=== PATIENT | male | born 2000 | race African-American/Black ===

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

== ENCOUNTER 2018-01-16 09:47 | Emergency (ER) | payer OTHER ==
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
--- NOTE | 2018-01-16 11:09 | CR ---
EXAMINATION: Left ankle HISTORY: Pain COMPARISON: 12/30/2017 TECHNIQUE: 3 views FINDINGS/IMPRESSION: There is no acute osseous abnormality, dislocation, or fracture. Bone mineraliza tion, ankle mortise, talar dome appear intact. Mild soft tissue swelling overlying the lateral malleo issac.
--- NOTE | 2018-01-16 11:15 | CR ---
EXAMINATION: Lumbar spine HISTORY: Pain COMPARISON: None TECHNIQUE: AP and lateral views FINDINGS: The lumbar spinal alignment is normal. Vertebral body heights and disc spaces appear well-m aintained. Mild concave appearance noted within the endplates. The SI joints are symmetric. Bone mine ralization is normal. IMPRESSION: No acute osseous abnormality identified.
== END 2018-01-16 11:50 | disposition home or self-care (01) ==
LOC: MW.ED 09:47
DX: M54.5 Low back pain (principal); M25.572 Pain in left ankle and joints of left foot; V49.40XA Driver injured in collision with unspecified motor vehicles in traffic accident, initial encounter
CPT/HCPCS: 72100; 72100-26; 73610-26-LT; 73610-LT; 99283

== ENCOUNTER 2018-07-27 08:28 | Emergency (ER) | payer SELFPAY ==
--- NOTE | 2018-07-27 08:44 | EDM.PDOC ---
ED HPI GENERAL MEDICAL PROBLEM - General Chief Complaint: ENT Problem Stated Complaint: SOMETHING IN HIS THROAT Time Seen by Provider: 07/27/18 08:31 - History of Present Illness INITIAL COMMENTS - FREE TEXT/NARRATIVE: HISTORY AND PHYSICAL: History of present illness: The patient is a 17-year-old male who presents with 2 day history of sore throat. He is unsure if he's had fever or chills. He denies any headache, nasal congestion, ear pain, cough, nausea, or vomiting. He denies any sick contacts or significant past medical history. Eating, drinking and swallowing makes it worse. Nothing makes it better. The patient hasn't tried any ceuh-kyp-tumirhm medications for pain relief. [] Review of systems: As per history of present illness and below otherwise all systems reviewed and negative. Past medical history: As per history of present illness and as reviewed below otherwise noncontributory. Surgical history: As per history of present illness and as reviewed below otherwise noncontributory. Social history: No reported history of drug or alcohol abuse. Family history: As per history of present illness and as reviewed below otherwise noncontributory. Physical exam: HEENT: Atraumatic, normocephalic, pupils reactive, negative for conjunctival pallor or scleral icterus, mucous membranes moist,orophyarnx clear without erythema or exudates, TM clear without erythema or bulging, neck supple without lymphadenopathy, nontender, trachea midline. Lungs: Clear to auscultation, breath sounds equal bilaterally, chest nontender. Heart: S1S2, regular, negative for clicks, rubs, or JVD. Abdomen: Soft, nondistended, nontender. Negative for masses or hepatosplenomegaly. Negative for costovertebral tenderness. Pelvis: Stable nontender. Genitourinary: Deferred. Rectal: Deferred. Extremities: Atraumatic, negative for cords or calf pain. Neurovascular unremarkable. Neuro: Awake, alert, oriented. Cranial nerves II through XII unremarkable. Cerebellum unremarkable. Motor and sensory unremarkable throughout. Exam nonfocal. Diagnostics: [Rapid Strep] Therapeutics: [none] Impression: [viral illness] Plan: [Discharge home with supportive care. Culture pending.] Definitive disposition and diagnosis as appropriate pending reevaluation and review of above. Throat Pain Score (Numeric/FACES): 9 - Related Data Allergies Allergy/AdvReac Type Severity Reaction Status Date / Time No Known Allergies Allergy Verified 07/27/18 08:43 Home Meds: Home Meds . [No Known Home Meds] 12/30/17 [History] Past Medical History - Past Health History Medical/Surgical History: Denies Medical/Surgical History - Infectious Disease History Infectious Disease History: Reports: TB Social & Family History - Family History Family Medical History: Noncontributory ED ROS GENERAL - Review of Systems Review Of Systems: See Below (see dictation) ED EXAM, GENERAL - Physical Exam Exam: See Below (see dictation) Course - Vital Signs Last Recorded V/S: Last Vital Signs Temp 98.8 F 07/27/18 08:34 Pulse 94 07/27/18 08:34 Resp 16 07/27/18 08:34 BP 120/74 07/27/18 08:34 Pulse Ox 99 07/27/18 08:34 - Orders/Labs/Meds Orders: Active Orders 24 hr Category Date Time Status CULTURE STREP A CONFIRMATION [RM] Stat Lab 07/27/18 08:50 Results STREP SCRN A RAPID W CULT CONF [RM] Stat Lab 07/27/18 08:50 Results Departure - Departure Time of Disposition: 09:08 Disposition: Home, Self-Care 01 Condition: Good Clinical Impression: Viral pharyngitis - Discharge Information *PRESCRIPTION DRUG MONITORING PROGRAM REVIEWED*: No *COPY OF PRESCRIPTION DRUG MONITORING REPORT IN PATIENT JOSÉ MIGUEL: No Instructions: Sore Throat, [id number], Viral Illness, Adult Referrals: PCP,None [Primary Care Provider] - Forms: ED Department Discharge Additional Instructions: My general discharge The following information is given to patients seen in the emergency department who are being discharged to home. This information is to outline your options for follow-up care. We provide all patients seen in our emergency department with a follow-up referral. The need for follow-up, as well as the timing and circumstances, are variable depending upon the specifics of your emergency department visit. If you don't have a primary care physician on staff, we will provide you with a referral. We always advise you to contact your personal physician following an emergency department visit to inform them of the circumstance of the visit and for follow-up with them and/or the need for any referrals to a consulting specialist. The emergency department will also refer you to a specialist when appropriate. This referral assures that you have the opportunity for follow-up care with a specialist. All of these measure are taken in an effort to provide you with optimal care, which includes your follow-up. Under all circumstances we always encourage you to contact your private physician who remains a resource for coordinating your care. When calling for follow-up care, please make the office aware that this follow-up is from your recent emergency room visit. If for any reason you are refused follow-up, please contact the [facility] Emergency Department at and asked to speak to the emergency department charge nurse. My Primary Care [facility] [address] [place] [id number] Your rapid strep test was negative. A culture is pending. You will be contacted if the culture comes back positive. You may use Tylenol or ibuprofen for pain. Please follow up with your PCP. - My Orders Last 24 Hours: My Active Orders 07/27/18 08:50 CULTURE STREP A CONFIRMATION [RM] Stat STREP SCRN A RAPID W CULT CONF [] Stat - Assessment/Plan Last 24 Hours: My Active Orders 07/27/18 08:50 CULTURE STREP A CONFIRMATION [RM] Stat STREP SCRN A RAPID W CULT CONF [] Stat
== END 2018-07-27 09:18 | disposition home or self-care (01) ==
LOC: MW.ED 08:28
DX: J02.9 Acute pharyngitis, unspecified (principal)
CPT/HCPCS: 87081; 87880-QW; 99282; 99283

== ENCOUNTER 2018-11-08 10:38 | Emergency (ER) | payer SELFPAY ==
--- NOTE | 2018-11-08 11:01 | EDM.PDOC ---
ED HPI GENERAL MEDICAL PROBLEM - General Chief Complaint: ENT Problem Stated Complaint: CANNOT SWALLOW Time Seen by Provider: 11/08/18 10:46 Source of Information: Reports: Patient History Limitations: Reports: No Limitations - History of Present Illness INITIAL COMMENTS - FREE TEXT/NARRATIVE: HISTORY AND PHYSICAL: History of present illness: Patient is a 18-year-old male who presents to the emergency room with complaints of a sore throat and pain with swallowing 2 days. He states he has had generalized body aches and subjective fever. He denies any cough, chest pain , shortness of breath. Denies any abdominal pain, nausea, vomiting, diarrhea or constipation. He has been able to eat although this does cause pain. He has been drinking plenty of fluids. Denies any recent antibiotic use or travel. Review of systems: As per history of present illness and below otherwise all systems reviewed and negative. Past medical history: As per history of present illness and as reviewed below otherwise noncontributory. Surgical history: As per history of present illness and as reviewed below otherwise noncontributory. Social history: See social history for further information Family history: As per history of present illness and as reviewed below otherwise noncontributory. Physical exam: General: Well-developed and well-nourished 18-year-old -[place] male. Alert and oriented. Nontoxic appearing and in no acute distress. HEENT: Atraumatic, normocephalic, pupils equal and reactive bilaterally, negative for conjunctival pallor or scleral icterus, mucous membranes moist, TMs normal bilaterally, mild erythema to the posterior oropharynx without exudate, airway patent, neck supple, nontender, trachea midline. No drooling or trismus noted. No meningeal signs. No hot potato voice noted. Lungs: Clear to auscultation, breath sounds equal bilaterally, chest nontender. Heart: S1S2, regular rate and rhythm without overt murmur Abdomen: Soft, nondistended, nontender. Negative for masses or hepatosplenomegaly. Negative for costovertebral tenderness. Pelvis: Stable nontender. Genitourinary: Deferred. Rectal: Deferred. Skin: Intact, warm, dry. No lesions or rashes noted. Extremities: Atraumatic, negative for cords or calf pain. Neurovascular unremarkable. Neuro: Awake, alert, oriented. Cranial nerves II through XII unremarkable. Cerebellum unremarkable. Motor and sensory unremarkable throughout. Exam nonfocal. Diagnostics: Strep, influenza Therapeutics: None Prescription: Pen VK Phenergan with codeine elixir, #4 ounces Impression: Strep throat Plan: 1. Please take your medication as directed. Please get a new toothbrush in the next 24 hours after starting antibiotics to prevent re-infection 2. Tylenol and/or ibuprofen as needed for pain management. Phenergan with codeine for moderate to severe pain. This medication may cause drowsiness so do not take it will driving her needing to be functioning outside of the house. 3. Please follow-up with your primary care provider in the next 1-2 days. Return to the ED as needed and as discussed. Definitive disposition and diagnosis as appropriate pending reevaluation and review of above. sore throat Pain Score (Numeric/FACES): 8 - Related Data Allergies Allergy/AdvReac Type Severity Reaction Status Date / Time No Known Allergies Allergy Verified 11/08/18 10:51 Home Meds: Home Meds . [No Known Home Meds] 12/30/17 [History] Past Medical History - Past Health History Medical/Surgical History: Denies Medical/Surgical History HEENT History: Reports: None Cardiovascular History: Reports: None Respiratory History: Reports: None Gastrointestinal History: Reports: None Genitourinary History: Reports: None Musculoskeletal History: Reports: None Neurological History: Reports: None Psychiatric History: Reports: None Endocrine/Metabolic History: Reports: None Hematologic History: Reports: None Immunologic History: Reports: None Oncologic (Cancer) History: Reports: None Dermatologic History: Reports: None - Infectious Disease History Infectious Disease History: Reports: Chicken Pox - Past Surgical History Head Surgeries/Procedures: Reports: None Social & Family History - Family History Family Medical History: Noncontributory - Tobacco Use Smoking Status *Q: Never Smoker - Caffeine Use Caffeine Use: Reports: None - Recreational Drug Use Recreational Drug Use: No ED ROS ENT - Review of Systems Review Of Systems: ROS reveals no pertinent complaints other than HPI. ED EXAM, ENT - Physical Exam Exam: See Below (See dictation) Course - Vital Signs Last Recorded V/S: Last Vital Signs Temp 98.0 F 11/08/18 10:51 Pulse 87 11/08/18 10:51 Resp 16 11/08/18 10:51 BP 111/61 01/17/19 10:51 Pulse Ox 97 11/08/18 10:51 - Orders/Labs/Meds Orders: Active Orders 24 hr Category Date Time Status CULTURE STREP A CONFIRMATION [RM] Stat Lab 11/08/18 11:45 Results INFLUENZA A+B AG SCREEN [] Stat Lab 11/08/18 11:45 Received STREP SCRN A RAPID W CULT CONF [RM] Stat Lab 11/08/18 11:45 Results Departure - Departure Time of Disposition: 12:22 Disposition: Home, Self-Care 01 Clinical Impression: Strep throat - Discharge Information Instructions: Strep Throat, [id number]-Hmhy Referrals: PCP,None [Primary Care Provider] - Forms: ED Department Discharge Additional Instructions: The following information is given to patients seen in the emergency department who are being discharged to home. This information is to outline your options for follow-up care. We provide all patients seen in our emergency department with a follow-up referral. The need for follow-up, as well as the timing and circumstances, are variable depending upon the specifics of your emergency department visit. If you don't have a primary care physician on staff, we will provide you with a referral. We always advise you to contact your personal physician following an emergency department visit to inform them of the circumstance of the visit and for follow-up with them and/or the need for any referrals to a consulting specialist. The emergency department will also refer you to a specialist when appropriate. This referral assures that you have the opportunity for follow-up care with a specialist. All of these measure are taken in an effort to provide you with optimal care, which includes your follow-up. Under all circumstances we always encourage you to contact your private physician who remains a resource for coordinating your care. When calling for follow-up care, please make the office aware that this follow-up is from your recent emergency room visit. If for any reason you are refused follow-up, please contact the [facility] Emergency Department at and asked to speak to the emergency department charge nurse. [facility] [address] [place] [id number] [address] 1. Please take your medication as directed. Please get a new toothbrush in the next 24 hours after starting antibiotics to prevent re-infection 2. Tylenol and/or ibuprofen as needed for pain management. Phenergan with codeine for moderate to severe pain. This medication may cause drowsiness so do not take it will driving her needing to be functioning outside of the house. 3. Please follow-up with your primary care provider in the next 1-2 days. Return to the ED as needed and as discussed. - My Orders Last 24 Hours: My Active Orders 11/08/18 11:45 CULTURE STREP A CONFIRMATION [RM] Stat INFLUENZA A+B AG SCREEN [] Stat STREP SCRN A RAPID W CULT CONF [RM] Stat - Assessment/Plan Last 24 Hours: My Active Orders 11/08/18 11:45 CULTURE STREP A CONFIRMATION [RM] Stat INFLUENZA A+B AG SCREEN [] Stat STREP SCRN A RAPID W CULT CONF [] Stat
== END 2018-11-08 12:39 | disposition home or self-care (01) ==
LOC: MW.ED 10:38
DX: J02.9 Acute pharyngitis, unspecified (principal)
CPT/HCPCS: 87081; 87804; 87880-QW; 99283

== ENCOUNTER 2019-06-16 11:17 | Emergency (ER) | payer SELFPAY ==
--- NOTE | 2019-06-16 11:29 | EDM.PDOC ---
ED HPI GENERAL MEDICAL PROBLEM - General Chief Complaint: Bite:Animal, Insect Stated Complaint: HAND INJURY Time Seen by Provider: 06/16/19 11:20 Source of Information: Reports: Patient History Limitations: Reports: No Limitations - History of Present Illness INITIAL COMMENTS - FREE TEXT/NARRATIVE: HISTORY AND PHYSICAL: History of present illness: Patient is a 18-year-old -[place] male presents to the ED today with concern of a bee sting to his left hand middle finger that occurred yesterday. Patient states he has not taken anything for his symptoms and his finger is swollen and has been immediately after the bite. Patient states he's been stung by a bee before and does not have any allergic reaction that he is aware of. Patient states he is able to use the hand but does have some pain with movement of the finger. Patient states he did see the bee itself land directly on his finger and sting him. Patient denies any feeling of tightness in his throat or tingling. Patient denies any direct trauma or any other symptoms or concerns at this time. Patient denies any health history. Patient denies fever, chills, chest pain, shortness of breath, or cough. Denies headache, neck stiff ness, change in vision, syncope, or near syncope. Denies nausea, vomiting, abdominal pain, diarrhea, constipation, or dysuria. Has not noted any blood in urine or stool. Patient has been eating and drinking appropriately. Review of systems: As per history of present illness and below otherwise all systems reviewed and negative. Past medical history: As per history of present illness and as reviewed below otherwise noncontributory. Surgical history: As per history of present illness and as reviewed below otherwise noncontributory. Social history: See social history for further information Family history: As per history of present illness and as reviewed below otherwise noncontributory. Physical exam: General: Patient is alert, oriented, and in no acute distress. Patient sitting comfortably on exam table. HEENT: Atraumatic, normocephalic, pupils equal and reactive bilaterally, negative for conjunctival pallor or scleral icterus, mucous membranes moist, TMs normal bilaterally, throat clear, neck supple, nontender, trachea midline. No drooling or trismus noted. No meningeal signs. No hot potato voice noted. Lungs: Clear to auscultation, breath sounds equal bilaterally, chest nontender. Heart: S1S2, regular rate and rhythm without overt murmur Abdomen: Soft, nondistended, nontender. Negative for masses or hepatosplenomegaly. Negative for costovertebral tenderness. Pelvis: Stable nontender. Genitourinary: Deferred. Rectal: Deferred. Skin: Intact, warm, dry. No lesions or rashes noted. Extremities: Negative for cords or calf pain. Neurovascular unremarkable. There is a pinpoint bite krista on patient's medial third digit of left hand with surrounding edema of the finger, not warm to the touch. The area of edema is isolated to the surrounding pinpoint bite/sting krista. This does not travel into the hand. Patient has full range of motion of all digits on the left hand as well as wrist. Radial pulses grossly intact with capillary refill less than 2 seconds of the left upper extremity. Neuro: Awake, alert, oriented. Cranial nerves II through XII unremarkable. Cerebellum unremarkable. Motor and sensory unremarkable throughout. Exam nonfocal. Notes: Discussed the importance for follow-up with his primary care provider. Voices understanding and is agreeable to plan of care. Denies any further questions or concerns at this time. Diagnostics: None Therapeutics: tdap Prescription: Medrol dose pack Impression: Bee sting, third digit of left hand Plan: 1. While symptomatic continue to routinely take Benadryl. Take medication as prescribed. 2. You can alternate ibuprofen and Tylenol as directed for pain and discomfort. 3. Follow up with your Primary care doctor as discussed. Return to the ED as needed and as discussed. Definitive disposition and diagnosis as appropriate pending reevaluation and review of above. Left Finger-Middle Pain Score (Numeric/FACES): 8 - Related Data Allergies Allergy/AdvReac Type Severity Reaction Status Date / Time No Known Allergies Allergy Verified 06/16/19 11:25 Home Meds: Home Meds . [No Known Home Meds] 12/30/17 [History] Past Medical History - Past Health History Medical/Surgical History: Denies Medical/Surgical History HEENT History: Reports: None Cardiovascular History: Reports: None Respiratory History: Reports: None Gastrointestinal History: Reports: None Genitourinary History: Reports: None Musculoskeletal History: Reports: None Neurological History: Reports: None Psychiatric History: Reports: None Endocrine/Metabolic History: Reports: None Hematologic History: Reports: None Immunologic History: Reports: None Oncologic (Cancer) History: Reports: None Dermatologic History: Reports: None - Infectious Disease History Infectious Disease History: Reports: Chicken Pox - Past Surgical History Head Surgeries/Procedures: Reports: None Social & Family History - Family History Family Medical History: Noncontributory - Caffeine Use Caffeine Use: Reports: None ED ROS GENERAL - Review of Systems Review Of Systems: ROS reveals no pertinent complaints other than HPI. ED EXAM, ANIMAL BITE - Physical Exam Exam: See Below (See dictation) Course - Vital Signs Last Recorded V/S: Last Vital Signs Temp 36.3 C 06/16/19 11:26 Pulse 71 06/16/19 11:26 Resp 16 06/16/19 11:26 BP 107/74 06/16/19 11:26 Pulse Ox 95 06/16/19 11:26 Departure - Departure Time of Disposition: : Disposition: Home, Self-Care 01 Clinical Impression: Bee sting Qualifiers: Encounter type: initial encounter Injury intent: accidental or unintentional Qualified Code(s): T63.441A - Toxic effect of venom of bees, accidental ( unintentional), initial encounter - Discharge Information Instructions: Bee, Wasp, or Hornet Sting, Adult Referrals: PCP,Unknown [Primary Care Provider] - Forms: ED Department Discharge Additional Instructions: The following information is given to patients seen in the emergency department who are being discharged to home. This information is to outline your options for follow-up care. We provide all patients seen in our emergency department with a follow-up referral. The need for follow-up, as well as the timing and circumstances, are variable depending upon the specifics of your emergency department visit. If you don't have a primary care physician on staff, we will provide you with a referral. We always advise you to contact your personal physician following an emergency department visit to inform them of the circumstance of the visit and for follow-up with them and/or the need for any referrals to a consulting specialist. The emergency department will also refer you to a specialist when appropriate. This referral assures that you have the opportunity for follow-up care with a specialist. All of these measure are taken in an effort to provide you with optimal care, which includes your follow-up. Under all circumstances we always encourage you to contact your private physician who remains a resource for coordinating your care. When calling for follow-up care, please make the office aware that this follow-up is from your recent emergency room visit. If for any reason you are refused follow-up, please contact the [facility] Emergency Department at and asked to speak to the emergency department charge nurse. [facility] [address] [place] [id number] [address] 1. While symptomatic continue to routinely take Benadryl. Take medication as prescribed. 2. You can alternate ibuprofen and Tylenol as directed for pain and discomfort. 3. Follow up with your Primary care doctor as discussed. Return to the ED as needed and as discussed.
== END 2019-06-16 11:40 | disposition home or self-care (01) ==
LOC: MW.ED 11:17
DX: T63.441A Toxic effect of venom of bees, accidental (unintentional), initial encounter (principal)
CPT/HCPCS: 99282

== ENCOUNTER 2019-07-12 18:23 | Emergency (ER) | payer SELFPAY ==
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
== END 2019-07-12 18:58 ==
LOC: MW.ED 18:23
DX: Z04.1 Encounter for examination and observation following transport accident (principal)
CPT/HCPCS: 82962; 99283

== ENCOUNTER 2019-07-13 14:47 | Emergency (ER) | payer OTHER | END 2019-07-13 15:12 | disposition left against medical advice (07) | LOC: MW.ED 14:47 | DX: Z53.21 Procedure and treatment not carried out due to patient leaving prior to being seen by health care provider (principal) ==

== ENCOUNTER 2020-08-26 20:24 | Emergency (ER) | payer SELFPAY ==
[2020-08-26] MEDS ORDERED: Lidocaine 1% PF 2 ML SDV INJECT ONE (20:25)
--- NOTE | 2020-08-26 20:27 | EDM.PDOC ---
ED HPI GENERAL MEDICAL PROBLEM - General Chief Complaint: Laceration Stated Complaint: LT LEG LACERATION Time Seen by Provider: 08/26/20 20:25 Source of Information: Reports: Patient History Limitations: Reports: No Limitations - History of Present Illness INITIAL COMMENTS - FREE TEXT/NARRATIVE: HISTORY AND PHYSICAL: History of present illness: Patient is a 20-year-old male who presents to the emergency room with complaints of a laceration to the solar surface of the left great toe. He states he was cooking when he dropped a bottle and stepped on the glass. He believes his tetanus is up-to-date. Denies any other bodily injury. He offers no systemic complaints. Review of systems: As per history of present illness and below otherwise all systems reviewed and negative. Past medical history: As per history of present illness and as reviewed below otherwise noncontributory. Surgical history: As per history of present illness and as reviewed below otherwise nonc ontributory. Social history: See social history for further information Family history: As per history of present illness and as reviewed below otherwise noncontributory. Physical exam: General: Well developed and well nourished 20-year-old -[place] male. Alert and orientated x 3. Nontoxic in appearance and in no acute distress. Vital signs are stable and have been reviewed by me. Nursing notes were reviewed. HEENT: Atraumatic, normocephalic, pupils equal and reactive bilaterally, negative for conjunctival pallor or scleral icterus, mucous membranes moist, TMs normal bilaterally, throat clear, neck supple, nontender, trachea midline. No drooling or trismus noted. No meningeal signs. No hot potato voice noted. Skin: 2.5 cm laceration to the bottom of the left great toe. Otherwise remaining skin is intact, warm, dry. No lesions or rashes noted. Hematologic: No petechiae or purpra. Mucosa appropriate color and normal nail bed color and refill. Extremities: See skin for details, moves all extremities per self without difficulty or deficits, negative for cords or calf pain. Neurovascular unremarkable. Neuro: Awake, alert, oriented. Cranial nerves II through XII unremarkable. Cerebellum unremarkable. Motor and sensory unremarkable throughout. Exam nonfocal. Psychiatric: Mood and affect are appropriate. Normal thought process. Answering questions appropriately. Notes: 1% lidocaine was used to anesthetize the area. Chlorhexidine and wound wash was used to cleanse the area. Usual and customary procedures were followed for suture placement. #6 interrupted sutures were placed. Patient tolerated well. Bacitracin nonstick dressing was applied. Although he believes his tetanus is up-to-date he refuses a Tdap stating he does not want any further shots. The patient is stable for discharge, counseling was provided and we discussed in great detail signs and symptoms that would prompt them to return to the Emergency Department. Medication, follow up and supportive care measures were reviewed and discussed. Voices understanding and is agreeable to plan of care. Denies any further questions or concerns at this time. Diagnostics: None Therapeutics: 1% lidocaine, bacitracin Prescription: None Impression: Laceration Plan: 1. Keep the area clean and dry. Continue to monitor for signs of infection. Sutures to be removed in 7-10 days. 2. Tylenol and/or ibuprofen as needed for pain management. 3. Please follow-up with your primary care provider in the next 1-2 days. Return to the ED as needed and as discussed. Definitive disposition and diagnosis as appropriate pending reevaluation and review of above. L foot Pain Score (Numeric/FACES): 8 - Related Data Allergies Allergy/AdvReac Type Severity Reaction Status Date / Time No Known Allergies Allergy Verified 08/26/20 20:32 Home Meds: Home Meds . [No Known Home Meds] 12/30/17 [History] Past Medical History - Past Health History Medical/Surgical History: Denies Medical/Surgical History HEENT History: Reports: None Cardiovascular History: Reports: None Respiratory History: Reports: None Gastrointestinal History: Reports: None Genitourinary History: Reports: None Musculoskeletal History: Reports: None Neurological History: Reports: None Psychiatric History: Reports: None Endocrine/Metabolic History: Reports: None Hematologic History: Reports: None Immunologic History: Reports: None Oncologic (Cancer) History: Reports: None Dermatologic History: Reports: None - Infectious Disease History Infectious Disease History: Reports: Chicken Pox - Past Surgical History Head Surgeries/Procedures: Reports: None HEENT Surgical History: Reports: None Cardiovascular Surgical History: Reports: None Respiratory Surgical History: Reports: None GI Surgical History: Reports: None Male Surgical History: Reports: None Endocrine Surgical History: Reports: None Neurological Surgical History: Reports: None Musculoskeletal Surgical History: Reports: None Oncologic Surgical History: Reports: None Dermatological Surgical History: Reports: None Social & Family History - Family History Family Medical History: Noncontributory - Caffeine Use Caffeine Use: Reports: None ED ROS GENERAL - Review of Systems Review Of Systems: Comprehensive ROS is negative, except as noted in HPI. ED EXAM, SKIN/RASH Exam: See Below (See dictation) ED SKIN PROCEDURES - Laceration/Wound Repair Left great toe Appearance: Subcutaneous, Linear, Clean Distal NVT: Neuro & Vascular Intact, No Tendon Injury Local Anesthesia - Lidocaine (Xylocaine): 1% Plain Local Anesthetic Volume: 3cc Skin Prep: Chlorhexidine (Hibiciens), Saline, Sterile Drape Saline Irrigation (cc's): 500 Exploration/Debridement/Repair: Wound Explored, In a Bloodless Field, Explored to Base, No Foreign Material Found Closed with: Sutures Lac/Wound length In cm: 2.5 Suture Size: 4-0 # of Sutures: 6 Suture Type: Nylon, Interrupted, Simple Drain Placement: No Sterile Dressing Applied: Provider Tetanus Status Addressed: Yes Complications: No Course - Vital Signs Last Recorded V/S: Last Vital Signs Temp 98.5 F 08/26/20 20:32 Pulse 57 L 08/26/20 20:32 Resp 18 08/26/20 20:32 BP 100/63 08/26/20 20:32 Pulse Ox 99 08/26/20 20:32 - Orders/Labs/Meds Meds: Medications Discontinued Medications Generic Name Dose Route Start Last Admin Trade Name Reese PRN Reason Stop Dose Admin Bacitracin 1 dose 08/26/20 20:53 08/26/20 20:56 Bacitracin Oint 1 Gm TOP 08/26/20 20:54 1 dose ONETIME ONE Administration Lidocaine HCl 4 ml 08/26/20 20:25 08/26/20 20:57 Xylocaine-Mpf 1% INJECT 08/26/20 20:26 4 ml ONETIME ONE Administration Departure - Departure Time of Disposition: 21:09 Disposition: Home, Self-Care 01 Clinical Impression: Laceration - Discharge Information Instructions: Laceration Care, Adult, [id number] Referrals: PCP,None [Primary Care Provider] - Forms: ED Department Discharge Additional Instructions: The following information is given to patients seen in the emergency department who are being discharged to home. This information is to outline your options for follow-up care. We provide all patients seen in our emergency department with a follow-up referral. The need for follow-up, as well as the timing and circumstances, are variable depending upon the specifics of your emergency department visit. If you don't have a primary care physician on staff, we will provide you with a referral. We always advise you to contact your personal physician following an emergency department visit to inform them of the circumstance of the visit and for follow-up with them and/or the need for any referrals to a consulting specialist. The emergency department will also refer you to a specialist when appropriate. This referral assures that you have the opportunity for follow-up care with a specialist. All of these measure are taken in an effort to provide you with optimal care, which includes your follow-up. Under all circumstances we always encourage you to contact your private physician who remains a resource for coordinating your care. When calling for follow-up care, please make the office aware that this follow-up is from your recent emergency room visit. If for any reason you are refused follow-up, please contact the [facility] at and asked to speak to the emergency department charge nurse. [facility] [address] [place] [address] [address] Thank you for choosing the [facility] emergency department in [place] for your medical needs today. It was a pleasure caring for you. Today you were seen in the emergency department for laceration. 1. Keep the area clean and dry. Continue to monitor for signs of infection. Sutures to be removed in 7-10 days. 2. Tylenol and/or ibuprofen as needed for pain management. 3. Please follow-up with your primary care provider in the next 1-2 days. Return to the ED as needed and as discussed. Sepsis Event Note (ED) - Focused Exam Vital Signs: Vital Signs Temp Pulse Resp BP Pulse Ox 08/26/20 20:32 98.5 F 57 L 18 100/63 99
[2020-08-26] MEDS ORDERED: Bacitracin Oint 1 GM U/D Packet TOP ONE (20:53)
== END 2020-08-26 21:17 | disposition home or self-care (01) ==
LOC: MW.ED 20:24
DX: S91.112A Laceration without foreign body of left great toe without damage to nail, initial encounter (principal); W25.XXXA Contact with sharp glass, initial encounter; Y93.G3 Activity, cooking and baking
CPT/HCPCS: 12001; 99282; J2001

== ENCOUNTER 2020-09-14 21:28 | Emergency (ER) | payer SELFPAY | END 2020-09-14 21:45 | disposition home or self-care (01) | LOC: MW.ED 21:28 | DX: S91.112D Laceration without foreign body of left great toe without damage to nail, subsequent encounter (principal); X58.XXXD Exposure to other specified factors, subsequent encounter | CPT/HCPCS: 99281 ==

== ENCOUNTER 2023-01-23 04:55 | Emergency (ER) | payer SELFPAY ==
[2023-01-23] MEDS ORDERED: Sodium Chloride 0.9% 1,000 ML IV ONE (05:17)
[2023-01-23] MEDS ORDERED: Famotidine 20 MG/2 ML SDV IVPUSH ONE (05:17)
[2023-01-23] MEDS ORDERED: Alum Hydro/Mag Hydro/Simeth XS 15 ML, Lidocaine 2% 5 ML PO ONE ×2 (05:18)
[2023-01-23 05:53] LABS: CARBON DIOXIDE,CO2 28.4 mmol/L (21.0-32.0); POTASSIUM,K 3.7 mmol/L (3.5-5.1)
== END 2023-01-23 06:56 | disposition home or self-care (01) ==
LOC: MW.ED 04:55
DX: K29.70 Gastritis, unspecified, without bleeding (principal)
CPT/HCPCS: 36415; 80053; 83690; 85025; 96361; 96374; 99284; A9270; J3490; J7030

== ENCOUNTER 2023-07-07 20:44 | Emergency (ER) | payer OTHER ==
[2023-07-07] MEDS ORDERED: Ondansetron 4 MG Tab.DIS PO STA (21:09)
[2023-07-07] MEDS ORDERED: Acetaminophen/HYDROcodone 325-5 MG Tab PO ONE (21:10)
[2023-07-07 21:26] LABS: BASOPHILS PERCENT AUTO 0.3 % (0.0-1.5); EOSINOPHILS ABSOLUTE AUTO 0.1 K/uL (0.0-0.7); EOSINOPHILS PERCENT AUTO 1.8 % (0.0-7.0); HEMATOCRIT 43.6 % (38.0-50.0); HEMOGLOBIN 14.3 g/dL (13.0-17.0); LYMPHOCYTES ABSOLUTE AUTO 1.3 K/uL (0.6-2.4); LYMPHOCYTES PERCENT AUTO 19.4 % (16.0-40.0); MEAN CORPUSCULAR HEMOGLOBIN 26.8 pg (27.0-32.0); MEAN CORPUSCULAR HGB CONC 32.8 g/dL (31.0-37.0); MEAN CORPUSCULAR VOLUME 81.8 fL (80.0-98.0); MONOCYTES ABSOLUTE AUTO 0.5 K/uL (0.0-0.8); MONOCYTES PERCENT AUTO 7.5 % (0.0-15.0); NEUTROPHILS ABSOLUTE AUTO 4.7 K/uL (1.4-5.7); NRBC ABSOLUTE 0 K/uL; PLATELET COUNT,PLT 239 K/uL (150-400); RED BLOOD CELL COUNT 5.33 M/uL (4.50-5.90); WHITE BLOOD CELL COUNT,WBC 6.55 K/uL (4.0-11.0)
[2023-07-07 21:57] LABS: A/G RATIO 0.9 (0.9-1.6); ALANINE AMINOTRANSFERASE,ALT 23 IU/L (14-63); ALBUMIN 3.9 g/dL (3.4-5.0); ALKALINE PHOSPHATASE 108 U/L (46-116); ASPARTATE AMNIOTRANSFERASE,AST 10 IU/L (15-37); BILIRUBIN TOTAL 0.4 mg/dL (0.2-1.0); BLOOD UREA NITROGEN,BUN 5 mg/dL (7.0-18.0); CALCIUM 8.4 mg/dL (8.5-10.1); CARBON DIOXIDE,CO2 26.8 mmol/L (21.0-32.0); CHLORIDE,CL 104 mmol/L (98-107); CREATININE 1.2 mg/dL (0.8-1.3); GLUCOSE RANDOM 82 mg/dL (74-106); LIPASE 28 U/L (16-77); PROTEIN TOTAL,TP 8.1 g/dL (6.4-8.2); SODIUM,NA 138 mmol/L (136-148)
[2023-07-07 22:03] LABS: ESTIMATED GFR 87 mL/min (>60)
[2023-07-08 01:33] LABS: APPEARANCE,URINE CLEAR; BILIRUBIN,URINE NEGATIVE (NEGATIVE); COLOR,URINE YELLOW; GLUCOSE,URINE NEGATIVE (NEGATIVE); KETONES,URINE >=80 mg/dL (NEGATIVE); LEUKOCYTE ESTERASE,URINE NEGATIVE (NEGATIVE); NITRITE,URINE NEGATIVE (NEGATIVE); OCCULT BLOOD,URINE NEGATIVE (NEGATIVE); PH,URINE 6.5 (5.0-8.0); PROTEIN,URINE NEGATIVE (NEGATIVE); UROBILINOGEN,URINE 0.2 EU/dL (<2.0)
== END 2023-07-08 02:01 | disposition home or self-care (01) ==
LOC: MW.ED 20:44
DX: R10.9 Unspecified abdominal pain (principal); R11.0 Nausea
CPT/HCPCS: 36415; 80053; 81003; 83690; 85025; 99284; A9270; 99283

== ENCOUNTER 2023-07-08 13:07 | Emergency (ER) | payer OTHER ==
[2023-07-08] MEDS ORDERED: Sucralfate 1 GM Tab PO ONE (13:28)
[2023-07-08] MEDS ORDERED: Sodium Chloride 0.9% 1,000 ML IV ONE (13:28)
[2023-07-08] MEDS ORDERED: Metoclopramide 10 MG/2 ML SDV IVPUSH ONE (13:28)
[2023-07-08] MEDS ORDERED: Sodium Chloride 0.9% 2.5 ML Syringe FLUSH PRN (13:28)
[2023-07-08] MEDS ORDERED: diphenhydrAMINE 50 MG/ML SDV IVPUSH ONE (13:28)
[2023-07-08] MEDS ORDERED: Famotidine 20 MG/2 ML SDV IVPUSH ONE (13:28)
[2023-07-08] MEDS ORDERED: Sodium Chloride 0.9% 10 ML Syringe FLUSH PRN (13:28)
[2023-07-08] MEDS ORDERED: Dicyclomine 10 MG Cap PO ONE (13:28)
[2023-07-08 13:47] LABS: BASOPHILS PERCENT AUTO 0.2 % (0.0-1.5); EOSINOPHILS PERCENT AUTO 0.5 % (0.0-7.0); HEMATOCRIT 41.7 % (38.0-50.0); HEMOGLOBIN 13.6 g/dL (13.0-17.0); LYMPHOCYTES ABSOLUTE AUTO 1.1 K/uL (0.6-2.4); LYMPHOCYTES PERCENT AUTO 17.7 % (16.0-40.0); MEAN CORPUSCULAR HEMOGLOBIN 26.6 pg (27.0-32.0); MEAN CORPUSCULAR HGB CONC 32.6 g/dL (31.0-37.0); MEAN CORPUSCULAR VOLUME 81.4 fL (80.0-98.0); MONOCYTES ABSOLUTE AUTO 0.4 K/uL (0.0-0.8); MONOCYTES PERCENT AUTO 5.5 % (0.0-15.0); NEUTROPHILS ABSOLUTE AUTO 4.8 K/uL (1.4-5.7); NEUTROPHILS PERCENT AUTO 76.1 % (48.0-80.0); NRBC ABSOLUTE 0 K/uL; PLATELET COUNT,PLT 234 K/uL (150-400); RED BLOOD CELL COUNT 5.12 M/uL (4.50-5.90); WHITE BLOOD CELL COUNT,WBC 6.33 K/uL (4.0-11.0)
[2023-07-08 14:10] LABS: CALCIUM 8.4 mg/dL (8.5-10.1); CARBON DIOXIDE,CO2 27.7 mmol/L (21.0-32.0); CREATININE 1.2 mg/dL (0.8-1.3); EST CRCL DRUG DOSING (CG) 88.75 mL/min
[2023-07-08 15:53] LABS: CORONAVIRUS COVID-19 NAA NEGATIVE (NEGATIVE); INFLUENZA A NAA NEGATIVE (NEGATIVE); INFLUENZA B NAA NEGATIVE (NEGATIVE)
== END 2023-07-08 18:17 | disposition home or self-care (01) ==
LOC: MW.ED 13:07
DX: R51.9 Headache, unspecified (principal); R10.12 Left upper quadrant pain; R11.0 Nausea; Z20.822 Contact with and (suspected) exposure to COVID-19
CPT/HCPCS: 0240U; 36415; 70450; 71046; 80048; 84484; 85025; 93005; 96374; 96375; 99284; A9270; J1200; J2765; J3490; J7030; 93010

== ENCOUNTER 2023-09-07 14:11 | Emergency (ER) | payer OTHER ==
[2023-09-07 16:10] LABS: APPEARANCE,URINE SLT CLOUDY; BILIRUBIN,URINE NEGATIVE (NEGATIVE); COLOR,URINE YELLOW; GLUCOSE,URINE NEGATIVE (NEGATIVE); KETONES,URINE NEGATIVE (NEGATIVE); LEUKOCYTE ESTERASE,URINE MODERATE (NEGATIVE); NITRITE,URINE NEGATIVE (NEGATIVE); OCCULT BLOOD,URINE TRACE-INTACT (NEGATIVE); PROTEIN,URINE 30 mg/dL (NEGATIVE)
[2023-09-07 16:21] LABS: BACTERIA,URINE RARE (NEGATIVE); EPITHELIAL CELLS,URINE RARE (NONE-FEW); RBC,URINE 0-1 (0-2/HPF); WBC,URINE TO NUMEROUS TO COUNT (0-5/HPF)
[2023-09-07 17:41] LABS: C. TRACHOMATIS BY PCR NOT DETECTED; N. GONORRHOEAE BY PCR DETECTED
[2023-09-07] MEDS ORDERED: cefTRIAXone 500 MG in Lidocaine 1% 1 ML IM STA (17:45)
[2023-09-07] MEDS ORDERED: Doxycycline 100 MG Cap PO STA (17:46)
== END 2023-09-07 18:37 | disposition home or self-care (01) ==
LOC: MW.ED 14:11
DX: N30.90 Cystitis, unspecified without hematuria (principal); A54.9 Gonococcal infection, unspecified
CPT/HCPCS: 81001; 87086; 87491; 87591; 96372; 99283; A9270; J0696; J3490

== ENCOUNTER 2024-01-22 10:11 | Emergency (ER) | payer BC | END 2024-01-22 10:33 | disposition home or self-care (01) | LOC: MW.ED 10:11 | DX: J02.9 Acute pharyngitis, unspecified (principal); Z86.19 Personal history of other infectious and parasitic diseases | CPT/HCPCS: 99282; 99283 ==

== ENCOUNTER 2024-12-21 09:20 | Emergency (ER) | payer SELFPAY ==
[2024-12-21] MEDS ORDERED: Sodium Chloride 0.9% 10 ML Syringe FLUSH PRN (10:46)
[2024-12-21] MEDS ORDERED: Sodium Chloride 0.9% 20 ML SDV IV PRN (10:46)
[2024-12-21] MEDS ORDERED: Sodium Chloride 0.9% 2.5 ML Syringe FLUSH PRN (10:46)
[2024-12-21] MEDS: Sodium Chloride 0.9% 1,000 ML IV ONE (11:12)
[2024-12-21 11:15] LABS: BASOPHILS ABSOLUTE AUTO 0.02 K/uL (0.00-0.20); BASOPHILS PERCENT AUTO 0.3 % (0.0-1.0); EOSINOPHILS ABSOLUTE AUTO 0.05 K/uL (0.00-0.45); EOSINOPHILS PERCENT AUTO 0.7 % (0.0-6.0); HEMATOCRIT 42.8 % (42.0-52.0); HEMOGLOBIN 14.2 g/dL (14.0-18.0); IMMATURE GRAN ABSOLUTE AUTO 0.02 K/uL (0.00-0.05); IMMATURE GRAN PERCENT AUTO 0.3 % (0.0-0.4); LYMPHOCYTES ABSOLUTE AUTO 0.88 K/uL (1.00-4.80); LYMPHOCYTES PERCENT AUTO 12.1 % (24.0-44.0); MEAN CORPUSCULAR HEMOGLOBIN 26.8 pg (28.0-32.0); MEAN CORPUSCULAR HGB CONC 33.2 g/dL (32.0-36.0); MEAN CORPUSCULAR VOLUME 80.9 fL (83.0-99.0); MEAN PLATELET VOLUME 10.5 fL (9.4-12.4); NEUTROPHILS ABSOLUTE AUTO 5.49 K/uL (1.80-7.70); NEUTROPHILS PERCENT AUTO 75.6 % (41.0-71.0); PLATELET COUNT,PLT 215 K/uL (150-400); RED BLOOD CELL COUNT 5.29 M/uL (4.52-5.90); WHITE BLOOD CELL COUNT,WBC 7.26 K/uL (3.9-11.3)
[2024-12-21] MEDS: Penicillin G Benzathine 1,200,000 Units/2 ML Syringe IM ONE (11:31)
[2024-12-21 11:45] LABS: A/G RATIO 0.9 (0.9-1.6); ALBUMIN 3.6 g/dL (3.4-5.0); BILIRUBIN TOTAL 0.4 mg/dL (0.2-1.0); CARBON DIOXIDE,CO2 25.3 mmol/L (21.0-32.0); CREATININE 1.3 mg/dL (0.8-1.3); EST CRCL DRUG DOSING (CG) 80.51 mL/min; POTASSIUM,K 3.8 mmol/L (3.5-5.1); PROTEIN TOTAL,TP 7.6 g/dL (6.4-8.2)
[2024-12-21 11:48] LABS: LACTIC ACID 1.1 mmol/L (0.4-2.0)
[2024-12-21] MEDS ORDERED: Iopamidol 755 MG/ML 500 ML Multipack Bottle IVPUSH STA (12:47)
[2024-12-21] MEDS: Iopamidol 755 MG/ML 500 ML Multipack Bottle IVPUSH STA (12:47)
== END 2024-12-21 14:10 | disposition home or self-care (01) ==
LOC: MW.ED 09:20
DX: J03.90 Acute tonsillitis, unspecified (principal)
CPT/HCPCS: 36415; 70491; 80053; 83605; 85025; 85652; 86140; 87428; 87651; 96372; 96374; 99284; J0561; J1100; J7030; Q9967

== ENCOUNTER 2025-01-22 15:53 | Emergency (ER) | payer SELFPAY ==
[2025-01-22] MEDS: Acetaminophen 500 MG Tab PO ONE (17:37)
[2025-01-22] MEDS: Ondansetron 4 MG Tab.DIS PO ONE (17:37)
== END 2025-01-22 18:58 | disposition home or self-care (01) ==
LOC: MW.ED 15:53
DX: S09.90XA Unspecified injury of head, initial encounter (principal); Z75.8 Other problems related to medical facilities and other health care; V49.49XA Driver injured in collision with other motor vehicles in traffic accident, initial encounter; Y93.89 Activity, other specified
CPT/HCPCS: 70450; 99284; A9270; 99283

== ENCOUNTER 2025-02-10 09:55 | Emergency (ER) | payer SELFPAY ==
[2025-02-10] MEDS: Orphenadrine 60 MG/2 ML Inj IM ONE (10:28)
[2025-02-10] MEDS: Lidocaine 4% Patch TOP STA (10:28)
[2025-02-10] MEDS: Ketorolac 30 MG/ML SDV IM ONE (10:28)
[2025-02-10 10:32] LABS: BASOPHILS ABSOLUTE AUTO 0.01 K/uL (0.00-0.20); BASOPHILS PERCENT AUTO 0.2 % (0.0-1.0); EOSINOPHILS ABSOLUTE AUTO 0.16 K/uL (0.00-0.45); EOSINOPHILS PERCENT AUTO 2.7 % (0.0-6.0); HEMATOCRIT 42.8 % (42.0-52.0); HEMOGLOBIN 14.3 g/dL (14.0-18.0); IMMATURE GRAN ABSOLUTE AUTO 0.01 K/uL (0.00-0.05); IMMATURE GRAN PERCENT AUTO 0.2 % (0.0-0.4); LYMPHOCYTES PERCENT AUTO 27.4 % (24.0-44.0); MEAN CORPUSCULAR HEMOGLOBIN 26.7 pg (28.0-32.0); MEAN CORPUSCULAR HGB CONC 33.4 g/dL (32.0-36.0); MEAN CORPUSCULAR VOLUME 79.9 fL (83.0-99.0); MEAN PLATELET VOLUME 10.3 fL (9.4-12.4); MONOCYTES ABSOLUTE AUTO 0.57 K/uL (0.00-0.80); MONOCYTES PERCENT AUTO 9.7 % (0.0-8.0); NEUTROPHILS PERCENT AUTO 59.8 % (41.0-71.0); PLATELET COUNT,PLT 226 K/uL (150-400); RED BLOOD CELL COUNT 5.36 M/uL (4.52-5.90); WHITE BLOOD CELL COUNT,WBC 5.85 K/uL (3.9-11.3)
[2025-02-10 11:03] LABS: A/G RATIO 0.9 (0.9-1.6); ALBUMIN 3.7 g/dL (3.4-5.0); BILIRUBIN TOTAL 0.4 mg/dL (0.2-1.0); CALCIUM 8.7 mg/dL (8.5-10.1); CARBON DIOXIDE,CO2 24.5 mmol/L (21.0-32.0); CREATININE 1.1 mg/dL (0.8-1.3); EST CRCL DRUG DOSING (CG) 95.14 mL/min; MAGNESIUM 1.9 mg/dL (1.8-2.4); POTASSIUM,K 3.8 mmol/L (3.5-5.1); PROTEIN TOTAL,TP 7.7 g/dL (6.4-8.2)
[2025-02-10 11:17] LABS: APPEARANCE,URINE CLEAR; BILIRUBIN,URINE NEGATIVE (NEGATIVE); COLOR,URINE YELLOW; GLUCOSE,URINE NEGATIVE (NEGATIVE); KETONES,URINE TRACE mg/dL (NEGATIVE); LEUKOCYTE ESTERASE,URINE NEGATIVE (NEGATIVE); NITRITE,URINE NEGATIVE (NEGATIVE); OCCULT BLOOD,URINE NEGATIVE (NEGATIVE); PROTEIN,URINE NEGATIVE (NEGATIVE); UROBILINOGEN,URINE 0.2 EU/dL (<2.0)
== END 2025-02-10 11:58 | disposition home or self-care (01) ==
LOC: MW.ED 09:55
DX: M54.50 Low back pain, unspecified (principal); Z79.899 Other long term (current) drug therapy; Z75.8 Other problems related to medical facilities and other health care
CPT/HCPCS: 36415; 80053; 81003; 83690; 83735; 85025; 96372; 99284; A9270; J1885; J2360; 99283